=== PATIENT | female | born 1980 | race Two or more races ===

== ENCOUNTER 2025-03-16 15:59 | Emergency (ER) | payer MEDICAID, SELFPAY ==
[2025-03-16 16:29] VITALS: BP 141/90; PULSE 108; RESP 18; TEMP 36.9; O2SAT 99; BMI 29.9
--- NOTE | 2025-03-16 16:33 | XR_ITS ---
Examination: Complete OB ultrasound, less than 14 weeks, transabdominal Date and time of exam: March 16, 2025, 1727 hours INDICATIONS: Right lower abdominal pain beginning today early by history Technique: Obstetrical ultrasound images less than 14 weeks performed via transabdominal imaging Findings: A normal shaped single intrauterine gestation is present in the uterus. pole 4.4 cm corresponds to 11 weeks 2 days gestational age Cardiac motion 178 bpm Ultrasonographic survey of visible and placental structures unremarkable. Amniotic fluid volume appears appropriate for this estimated gestational age. Right ovary 2.3 cm arterial flow Left ovary obscured by bowel gas IMPRESSION: Viable intrauterine gestation 11 weeks 2 days.
--- NOTE | 2025-03-16 16:43 | PD.EDRME ---
Rapid Medical Screening Exam [facility] Arrival date/time: 03/16/25 15:59 44-year-old female with no known medical history presents to the emergency room with a chief complaint of abdominal cramping.. Patient is currently 8 weeks and states she recently got bad news of her mother passing away and is concerned about her I have greeted and performed a focused initial assessment of this patient. A comprehensive ED assessment and evaluation of the patient, analysis of all test results, and completion of the medical decision making process will be conducted by additional ED providers. Chief Complaint: Abdominal Pain Vital signs: Vital Signs Temperature 98.4 F 03/16/25 16:29 Pulse Rate 108 H 03/16/25 16:29 Respiratory Rate 18 03/16/25 16:29 Blood Pressure 141/90 H 03/16/25 16:29 Pulse Oximetry (%) 99 03/16/25 16:29 Oxygen Delivery Method Room Air 03/16/25 16:29 Vital signs reviewed by provider: Yes Exam: Bilateral abdominal tenderness Clinical Impression: Spontaneous /threatened abdominal cramping
[2025-03-16 17:09] LABS: Basophils # (Auto) 0.0 Thou/mm3 (0.0-0.2); Basophils % (Auto) 0 % (0-2.5); Eosinophils # (Auto) 0.0 Thou/mm3 (0.0-0.5); Eosinophils % (Auto) 0 % (0-10); Hematocrit 38.5 % (36.0-46.0); Hemoglobin 13.0 g/dL (12.0-16.0); Immature Granulocytes Auto 0.04 Thou/mm3 (0.00-0.00); Lymphocytes # (Auto) 2.0 Thou/mm3 (1.0-4.8); Lymphocytes % (Auto) 19 % (10-50); Mean Corpuscular HGB Conc 33.8 g/dl (31.0-37.0); Mean Corpuscular Hemoglobin 29.0 pg (25.0-35.0); Mean Corpuscular Volume 86 fL (80-100); Monocytes # (Auto) 1.0 Thou/mm3 (0.0-0.8); Monocytes % (Auto) 9 % (0-12); Neutrophils # (Auto) 7.7 Thou/mm3 (1.8-7.7); Neutrophils % (Auto) 72 % (37-80); Nucleated Red Blood Cell # 0.00 Thou/mm3 (0.00-0.00); Nucleated Red Blood Cell % 0 /100 WBC (0); Platelet Count 327 Thou/mm3 (140-440); RDW Standard Deviation 40.2 fL (36.4-46.3); Red Blood Count 4.49 Miln/mm3 (4.00-5.20); White Blood Count 10.7 Thou/mm3 (3.6-11.0)
[2025-03-16 17:20] LABS: Alanine Aminotransferase 21 U/L (10-49); Albumin, Serum 4.3 gm/dL (3.5-5.0); Albumin/Globulin Ratio 1.4 (1.2-2.2); Alkaline Phosphatase 99 U/L (46-116); Anion Gap 10 (7-16); Aspartate Amino Transferase 20 U/L (0-34); BUN/Creatinine Ratio 12 Ratio (12-20); Bilirubin,Total 0.2 mg/dL (0.3-1.2); Blood Urea Nitrogen 6 mg/dL (9-23); Calcium 9.4 mg/dL (8.3-10.6); Calcium (Corrected) 9.4 mg/dL (8.5-10.1); Carbon Dioxide 25.1 mMol/L (20.0-31.0); Chloride 106 mMol/L (98-107); Creatinine (Component) 0.5 mg/dL (0.6-1.3); Estimated Creatinine Clearance 157.1 mL/min (>60); Globulin 3.0 gm/dL (2.3-3.5); Glucose 94 mg/dL (74-106); Osmolality,Calculated 278 (275-295); Potassium 4.1 mMol/L (3.4-5.1); Sodium 141 mMol/L (136-145); Total Protein 7.3 gm/dL (5.7-8.2); eGFR > 60 See Note
[2025-03-16 17:31] LABS: Collection Type, Urine Clean Catch
[2025-03-16 17:56] LABS: Bacteria,Urine Rare; Bilirubin,Urine Negative (Negative); Blood,Urine Trace (Negative); Color,Urine Yellow (Lt Yel-Yel); Glucose, Urine Negative (Negative); Ketones,Urine 1+ (Negative); Leukocyte Esterase,Urine Negative (Negative); Nitrite,Urine Negative (Negative); PH,Urine 6.0 (5.0-7.0); Protein,Urine Negative (Neg - Trace); RBC,Urine 2 /hpf (0-3); Specific Gravity,Urine 1.019 (1.001-1.035); Squamous Epithelial Cell,Urine 3 /hpf (0-5); Urobilinogen,Urine Negative mg/dL (0.0-1.0); WBC,Urine 1 /hpf (0-5)
[2025-03-16 17:58] LABS: Clarity,Urine Hazy (Clear/Hazy)
--- NOTE | 2025-03-16 21:06 | EDNOTE_ITS ---
ED General RME/HPI General Chief complaint: Abdominal Pain Stated complaint: RLQ ABD PAIN, NAUSEA, MESA Time Seen by Provider: 03/16/25 18:31 Arrival date/time: 03/16/25 15:59 CC: Check my . HPI patient lost her her mother recently is concerned about her baby. Patient is a G3, P2 at estimated 11 weeks denies vaginal bleeding vaginal discharge nausea vomiting or diarrhea but is complaining of a mild headache. RME / HPI RME / HPI narrative: 03/16/25 15:59 44-year-old female with no known medical history presents to the emergency room with a chief complaint of abdominal cramping.. Patient is currently 8 weeks and states she recently got bad news of her mother passing away and is concerned about her I have greeted and performed a focused initial assessment of this patient. A comprehensive ED assessment and evaluation of the patient, analysis of all test results, and completion of the medical decision making process will be conducted by additional ED providers. Exam: Bilateral abdominal tenderness Impression: Spontaneous /threatened abdominal cramping Related Data Home Medications ?Medication ?Instructions ?Recorded ?Confirmed acyclovir 400 mg tablet (Zovirax) 400 mg PO TID #0 tab s 06/27/16 ibuprofen 800 mg tablet 800 mg PO Q8HR PRN PAIN #0 t abs 06/27/16 Previous Rx's ?Medication ?Instructions ?Recorded Hydrocodone/Acetaminophen * (NORCO 1 tab PO Q6H PRN AB DOMINAL PAIN 06/28/16 7.5/325 *) #30 tabs Allergies Allergy/AdvReac Type Severity Reaction Status Date / Time No Known Allergies Allergy Verified 03/16/25 16:03 Review of Systems Review of Systems Narrative Review of Systems: GEN: No fever, no chills, no weight loss EYES: No discharge, no visual changes, no pain HEENT: No ear pain, no congestion, no sore throat PULM: No shortness of breath, no cough, no congestion CV: No chest pain, no dyspnea on exertion, no palpitations GI: No nausea, no vomiting, no diarrhea, no pain, no constipation : No frequency, no urgency, no dysuria MUSC/SKEL: No joint pain, no back pain SKIN: No rash PSYCH: No hallucinations, no depression HEME/LYMPH: No easy bleeding or bruising tendencies NEURO: No weakness, + headache Past Medical History Social History SMOKING STATUS: Never smoker ED Exam Narrative Physical exam: [General: Anxious but not in any acute distress Head normocephalic HEENT: Within acceptable limits Neck is supple nontender Chest equal chest rise nontender to palpation Respiratory: Clear to auscultation no wheezes crackles or rubs CV: Rate rhythm is regular no murmurs rubs or clicks Abdomen is distended secondary to body habitus soft nontender no masses positive bowel sounds all 4 quadrants Back: No CVA tenderness no spinous process tenderness from cervical spine thoracic and lumbar spine Skin: Intact no petechiae rash induration ulceration or crepitus Extremities: Moving all extremity against resistance cap refill less than 2 seconds neurosensory intact Neuro: Awake alert oriented x3 Glascow coma 15 no focal deficits] Course Quality Measures none Orders Category Date Time Status US OB <= 14 weeks fetus Stat Exams 03/16/25 16:33 Completed ABO/RH Type Stat Lab 03/16/25 16:45 Completed Beta HCG,Quantitative Stat Lab 03/16/25 16:45 Completed CBC Stat Lab 03/16/25 16:45 Completed CMP [Comprehensive Metabolic Panel] Stat Lab 03/16/25 16:45 Completed UA [Urinalysis] Stat Lab 03/16/25 17:21 Completed Acetaminophen Tab [Tylenol Tab] Med 03/16/25 21:05 Once 650 mg PO X1 ONE Vital Signs Vital signs: Vital Signs Temperature 98.4 F 03/16/25 16:29 Pulse Rate 108 H 03/16/25 16:29 Respiratory Rate 18 03/16/25 16:29 Blood Pressure 141/90 H 03/16/25 16:29 Pulse Oximetry (%) 99 03/16/25 16:29 Oxygen Delivery Method Room Air 03/16/25 16:29 Discharge Plan Plan Patient Disposition: HOME (Self Care) Patient condition on transfer: Stable Prescriptions/Referrals Prescriptions/Med Rec: No Action ibuprofen 800 MG tablet 800 mg PO Q8HR PRN (Reason: PAIN) Qty: 0 acyclovir [Zovirax] 400 MG tablet 400 mg PO TID Qty: 0 Patient Comments: UP TO 12 MONTHS FOR CHRONIC SUPPRESSIVE THERAPY Hydrocodone/Acetaminophen * (NORCO 7.5/325 *) 1 TAB tablet 1 tab PO Q6H PRN (Reason: ABDOMINAL PAIN) Qty: 30 0RF Referrals: No Primary/Family,Physician [Primary Care Provider] - In 1 week Problem List Clinical Impression: , Headache Patient/Caregiver Discharge Instructions Education Materials: Preg 2nd Trimester Additional Instructions: Take Tylenol for headaches follow-up with your PROFESSOR [employer]. Print Language: German Stand Alone Forms: Rola Award Info., Patient Portal Info Letter PA/[employer] Supervising Physician PA/[employer] Supervising Physician: Jacob Quesada ENP MDM Clinical Information Provided by: patient Medical Records reviewed [facility] Meds/Rx considered, not ordered None Labs/Rad/Tests considered, not ordered None Chronic Illness/Social Conditions which may negatively complicate care or outcome(s)-explain: None or not applicable EKG EKG not done Labs Labs: interpreted by me Lab(s) Interpretation(s): CBC shows no acute leukocytosis anemia thrombocytopenia CMP shows no significant electrolyte imbalances renal impairment transaminitis or T. bili elevation Urine is negative for urinary tract infection Blood type is O+. Imaging Imaging interpretation: interpreted by me Imaging Interpretation(s): Single IUP at 11 weeks and 2 days with good heart tones. Medication Administration(s) none Medication Administration History Acetaminophen (Acetaminophen 325 Mg Tablet) 650 mg PO X1 ONE Stop: 03/16/25 21:06 Diagnosis Differential Diagnosis ED Complaint MDM: SAB UTI ectopic
[2025-03-16 21:09] VITALS: BP 137/88; PULSE 99; RESP 17; TEMP 36.9; O2SAT 98
[2025-03-16] MEDS: ACETAMINOPHEN 325 MG TABLET 650 MG PO (21:11)
== END 2025-03-16 21:21 | disposition home or self-care (01) ==
PROVIDERS: Nurse Practitioner Family; Emergency Provider Emergency Medicine
DX: O99.891 Other specified diseases and conditions complicating pregnancy (principal); R51.9 Headache, unspecified; R10.31 Right lower quadrant pain; Z3A.11 11 weeks gestation of pregnancy
CPT/HCPCS: 36415; 76801; 80053; 81001; 84702; 85025; 86900; 86901; 99283; A9270